=== PATIENT | male | born 1970 | race Two or more races ===

== ENCOUNTER 2023-05-04 23:42 | Emergency (ER) | payer OTHER ==
[~2023-05-04] VITALS: Ht 175.3 cm; Wt 110.0 kg
[2023-05-05] VITALS: TEMP 98.3
[2023-05-05] MEDS ORDERED: ACETAMINOPHEN 500 MG TABLET PO ONE (00:15)
[2023-05-05] MEDS ORDERED: METHOCARBAMOL 500 MG TABLET PO ONE (00:15)
[2023-05-05] MEDS ORDERED: IBUPROFEN 600 MG TABLET PO ONE (00:15)
[2023-05-05] MEDS ORDERED: METH-659 PO (02:21)
[2023-05-05] MEDS ORDERED: ACET-66 PO (02:21)
[2023-05-05] MEDS ORDERED: IBUP-1554 PO (02:21)
[2023-05-05 03:35] VITALS: BP 132/81; PULSE 79; RESP 18
== END 2023-05-05 03:55 | disposition home or self-care (01) ==
LOC: EMS 23:46
DX: S39.012A Strain of muscle, fascia and tendon of lower back, initial encounter (principal); V89.2XXA Person injured in unspecified motor-vehicle accident, traffic, initial encounter; Y93.89 Activity, other specified; Y92.89 Other specified places as the place of occurrence of the external cause; Y99.8 Other external cause status
CPT/HCPCS: 72040; 72070; 72100; 99284; Z7502; Z7610